=== PATIENT | female | born 1995 | race American Indian/Alaskan Native ===

== ENCOUNTER 2020-03-25 13:57 | Emergency (ER) | payer SELFPAY ==
--- NOTE | 2020-03-25 14:36 | Event Note ---
ED Screening Note ED Screening Note: many vague complaints depo rx none pmh fibro psh none works at [employer] nausea dec po chills dizzy then added cp and sob This initial assessment/diagnostic orders/clinical plan/treatment(s) is/are subject to change based on patients health status, clinical progression and re- assessment by fellow clinical providers in the ED. Further treatment and workup at subsequent clinical providers discretion. Patient/guardian urged not to elope from the ED as their condition may be serious if not clinically assessed and managed. Initial orders include: labs/ua
[2020-03-25 15:35] LABS: Bilirubin,Urine NEG (Negative); Blood,Urine NEG (Negative); Color,Urine Yellow (Yellow); Mucus,Urine FEW /HPF; Protein,Urine <15 mg/dL mg/dL (Negative); WBC,Urine < 1.0 /HPF (0.0-6.0)
[2020-03-25 15:40] LABS: HCG Qualitative,Urine Negative (Negative)
[2020-03-25 16:39] LABS: Blood Urea Nitrogen 7 mg/dL (7-17); Calcium 9.1 mg/dL (8.4-10.2); Hemolysis Index 15
[2020-03-25 16:45] LABS: Hematocrit 41.6 % (30.3-42.9); Mean Corpuscular HGB Conc 34 % (30-34); Mean Corpuscular Volume 89 fl (79-97); Platelet Count 243 K/mm3 (140-440); Red Blood Count 4.69 M/mm3 (3.65-5.03); Red Cell Distribution Width 12.7 % (13.2-15.2)
--- NOTE | 2020-03-25 16:45 | XRay Report ---
CHEST PA AND LATERAL VIEWS INDICATION: sob. COMPARISON: None FINDINGS: Support devices: None Heart: Normal Lungs/Pleura: No acute pulmonary or pleural findings. IMPRESSION: 1. No significant abnormality. Signer Name: Pieter Shaw MD Signed: 03/25/2020 4:40 PM Workstation Name: [id number]
[2020-03-25 16:46] LABS: BUN/Creatinine Ratio 12
== END 2020-03-25 15:30 | disposition left against medical advice (07) ==
LOC: ED 13:57
DX: R11.0 Nausea (principal); R51.9 Headache, unspecified; R06.02 Shortness of breath; Z53.21 Procedure and treatment not carried out due to patient leaving prior to being seen by health care provider
CPT/HCPCS: 36415; 71046; 80048; 81001; 81025; 85027

== ENCOUNTER 2021-02-03 16:52 | Emergency (ER) | payer MEDICAID ==
[2021-02-03 16:59] VITALS: BP 100/72
[2021-02-03] MEDS ORDERED: ONDANSETRON 4 MG/2 ML INJ IM ONE (17:27)
[2021-02-03] MEDS ORDERED: MORPHINE 4 MG/1 ML INJ IM ONE (17:27)
--- NOTE | 2021-02-03 17:35 | Emergency Department Report ---
HPI - General Chief Complaint: Abdominal Pain Time Seen by Provider: 02/03/21 17:18 - HPI HPI: MSE 1 The patient is a 25-year-old female present with a chief complaint of abdominal pain. Patient states for the past 2 to 3 weeks she has had intermittent sharp lower abdominal pain. Patient denies dysuria, hematuria or fever. When asked about vaginal discharge patient replies she does not know. Patient admits to nausea but denies vomiting or diarrhea. Patient currently gives her pain a score of 10/10 ED Past Medical Hx - Past Medical History Hx Asthma: Yes Additional medical history: fibromyalgia - Surgical History Past Surgical History?: No - Family History Family history: no significant - Social History Smoking Status: Never Smoker Substance Use Type: None (Denies illicit drug) - Medications Home Medications: Home Medications Medication Instructions Recorded Confirmed Last Taken Type Nitrofurantoin Mason/M-Cryst 100 mg PO Q12HR #14 capsule 02/03/21 Unknown Rx [Macrobid CAP] Pnv No.121/Iron/Folic Acid 1 each PO QDAY #60 tablet 02/03/21 Unknown Rx [ Multivitamin Tablet] ED Review of Systems ROS: Stated complaint: ABDOMINAL PAIN Other details as noted in HPI Constitutional: denies: fever Eyes: denies: eye pain ENT: denies: throat pain Respiratory: no symptoms reported Cardiovascular: denies: chest pain Endocrine: no symptoms reported Gastrointestinal: abdominal pain, nausea. denies: vomiting, diarrhea Genitourinary: discharge (?). denies: dysuria, hematuria Musculoskeletal: denies: back pain Neurological: denies: headache Physical Exam - Physical Exam Vital Signs: Vital Signs 02/03/21 16:58 Temperature 97.6 F Pulse Rate 68 Respiratory 16 Rate Blood Pressure 100/72 [Right] O2 Sat by Pulse 99 Oximetry Physical Exam: GENERAL: The patient is well-developed well-nourished female sitting in chair not appearing to be in acute distress. [] HEENT: Normocephalic. Atraumatic. Extraocular motions are intact. Patient has moist mucous membranes. NECK: Supple. Trachea midline CHEST/LUNGS: Clear to auscultation. There is no respiratory distress noted. HEART/CARDIOVASCULAR: Regular. There is no tachycardia. There is no gallop rub or murmur. ABDOMEN: Abdomen is soft, with mild discomfort to palpation in the right lower quadrant, suprapubic and left lower quadrant. Patient has normal bowel sounds. There is no abdominal distention. SKIN: There is no rash. There is no edema. There is no diaphoresis. NEURO: The patient is awake, alert, and oriented. The patient is cooperative. The patient has no focal neurologic deficits. The patient has normal speech MUSCULOSKELETAL: There is no evidence of acute injury. ED Course Vital Signs 02/03/21 16:58 Temperature 97.6 F Pulse Rate 68 Respiratory 16 Rate Blood Pressure 100/72 [Right] O2 Sat by Pulse 99 Oximetry ED Medical Decision Making - Lab Data Result diagrams: 02/03/21 17:48 02/03/21 17:48 Laboratory Tests 02/03/21 02/03/21 02/03/21 17:48 17:48 17:48 WBC 6.3 RBC 4.33 Hgb 12.5 Hct 38.8 MCV 90 MCH 29 MCHC 32 RDW 12.9 L Plt Count 247 Lymph % (Auto) 26.6 Mason % (Auto) 5.2 Eos % (Auto) 0.5 Baso % (Auto) 0.4 Lymph # (Auto) 1.7 Mason # (Auto) 0.3 Eos # (Auto) 0.0 Baso # (Auto) 0.0 Seg Neutrophils % 67.3 Seg Neutrophils # 4.2 Sodium 135 L Potassium 4.4 Chloride 102.8 Carbon Dioxide 19 L Anion Gap 18 BUN 6 L Creatinine 0.5 L Estimated GFR > 60 BUN/Creatinine Ratio 12 Glucose 88 Calcium 9.2 Total Bilirubin 0.40 AST 14 ALT 9 Alkaline Phosphatase 68 Total Protein 7.8 Albumin 4.1 Albumin/Globulin Ratio 1.1 Lipase 16 HCG, Qual Positive HCG, Quant Urine Color Urine Turbidity Urine pH Ur Specific [place] Urine Protein Urine Glucose (UA) Urine Ketones Urine Blood Urine Nitrite Urine Bilirubin Urine Urobilinogen Ur Leukocyte Esterase Urine WBC (Auto) Urine RBC (Auto) U Epithel Cells (Auto) Urine Bacteria (Auto) Urine Mucus Urine Sperm 02/03/21 02/03/21 17:48 Unknown WBC RBC Hgb Hct MCV MCH MCHC RDW Plt Count Lymph % (Auto) Mason % (Auto) Eos % (Auto) Baso % (Auto) Lymph # (Auto) Mason # (Auto) Eos # (Auto) Baso # (Auto) Seg Neutrophils % Seg Neutrophils # Sodium Potassium Chloride Carbon Dioxide Anion Gap BUN Creatinine Estimated GFR BUN/Creatinine Ratio Glucose Calcium Total Bilirubin AST ALT Alkaline Phosphatase Total Protein Albumin Albumin/Globulin Ratio Lipase HCG, Qual HCG, Quant 87591 H Urine Color Yellow Urine Turbidity Slightly-cloudy Urine pH 6.0 Ur Specific [place] 1.020 Urine Protein <15 mg/dl Urine Glucose (UA) Neg Urine Ketones 20 Urine Blood Neg Urine Nitrite Neg Urine Bilirubin Neg Urine Urobilinogen 4.0 Ur Leukocyte Esterase Tr Urine WBC (Auto) 8.0 H Urine RBC (Auto) < 1.0 U Epithel Cells (Auto) 4.0 Urine Bacteria (Auto) 2+ Urine Mucus 3+ Urine Sperm Few - Radiology Data Radiology results: report reviewed (Pelvic ultrasound), image reviewed (Pelvic ultrasound) [facility] [address] [place] [address] U ltrasound Report Signed Patient: DANGELO TAPIA MR# : [id number] : 1995 Acct:[id number] Age/Sex: 25 / F ADM Date: 02/03/21 Loc: ED Attending Dr: Ordering Physician: MILI BE MD Date of Service: 02/03/21 Procedure(s): US OB transvaginal Accession Number(s): [id number] cc: MILI BE MD ULTRASOUND OBSTETRIC INDICATION / CLINICAL INFORMATION: , lower abdominal pain. Clinical Gestational Age (GA) in weeks, days: 9, 1 TECHNIQUE: Transabdominal and Transvaginal. COMPARISON: None available. FINDINGS: GESTATIONAL SAC: Well-defined oval shape and intrauterine in location. YOLK SAC: No significant abnormality. EMBRYO/FETUS: No significant abnormality. - [place]- Rump Length = 0.7 cm = 6, 4 weeks, days - Heart Rate, beats per minute (if present) = ADNEXA: There is a complex cyst involving the right ovary which may represent involuting corpus luteal cyst. FREE FLUID: None. ADDITIONAL FINDINGS: None. IMPRESSION: 1. Single, living intrauterine with estimated sonographic age of 6, 4 weeks, days. heart tones are measured at 170 bpm. Signer Name: Dmitry Harrell DO Signed: 02/03/2021 8:28 PM Workstation Name: [id number] Transcribed By: NS Dictated By: DMITRY HARRELL DO Electronically Authenticated By: DMITRY HARRELL DO Signed Date/Time: 02/03/212027 DD/ 25 TD/TT: Print Cancel - Differential Diagnosis Cystitis, ovarian cyst, vaginitis, bacterial vaginosis Critical care attestation.: If time is entered above; I have spent that time in minutes in the direct care of this critically ill patient, excluding procedure time. ED Disposition Clinical Impression: , UTI (urinary tract infection) Disposition: HOME / SELF CARE / HOMELESS Is pt being admited?: No Does the pt Need Aspirin: No Condition: Stable Instructions: First Trimester of , [id number], Urinary Tract Infection, Adult, [id number], Abdominal Pain (ED) Additional Instructions: Return to the emergency department should you develop worsening symptoms, inability to tolerate food or liquids, high fever or any other concerns Prescriptions: Nitrofurantoin Mason/M-Cryst [Macrobid CAP] 100 mg PO Q12HR #14 capsule Pnv No.121/Iron/Folic Acid [ Multivitamin Tablet] 1 each PO QDAY #60 tablet Referrals: COBY STILL MD [Staff Physician] - [facility] (Dr. Still is an [employer]. Please follow-up with her for further evaluate)
[2021-02-03 17:58] LABS: Basophils % (Auto) 0.4 % (0.0-1.8); Eosinophils % (Auto) 0.5 % (0.0-4.3); Hematocrit 38.8 % (30.3-42.9); Hemoglobin 12.5 gm/dl (10.1-14.3); Lymphocytes # (Auto) 1.7 K/mm3 (1.2-5.4); Lymphocytes % (Auto) 26.6 % (13.4-35.0); Mean Corpuscular HGB Conc 32 % (30-34); Mean Corpuscular Volume 90 fl (79-97); Monocytes # (Auto) 0.3 K/mm3 (0.0-0.8); Monocytes % (Auto) 5.2 % (0.0-7.3); Platelet Count 247 K/mm3 (140-440); Red Blood Count 4.33 M/mm3 (3.65-5.03); Red Cell Distribution Width 12.9 % (13.2-15.2)
[2021-02-03 18:21] LABS: Alanine Aminotransferase 9 units/L (7-56); Albumin 4.1 g/dL (3.9-5); Blood Urea Nitrogen 6 mg/dL (7-17); Calcium 9.2 mg/dL (8.4-10.2); Hemolysis Index 34
[2021-02-03 18:22] LABS: BUN/Creatinine Ratio 12
[2021-02-03 18:49] LABS: Bacteria,Urine 2+ /HPF (Negative); Bilirubin,Urine NEG (Negative); Blood,Urine NEG (Negative); Color,Urine Yellow (Yellow); Mucus,Urine 3+ /HPF; Protein,Urine <15 mg/dL mg/dL (Negative); RBC,Urine < 1.0 /HPF (0.0-6.0); Sperm,Urine FEW /HPF (NP)
[2021-02-03] MEDS ORDERED: ACETAMINOPHEN 500 MG TAB PO ONE (19:06)
--- NOTE | 2021-02-03 20:32 | Ultrasound Report ---
ULTRASOUND OBSTETRIC INDICATION / CLINICAL INFORMATION: , lower abdominal pain. Clinical Gestational Age (GA) in weeks, days: 9, 1 TECHNIQUE: Transabdominal and Transvaginal. COMPARISON: None available. FINDINGS: GESTATIONAL SAC: Well-defined oval shape and intrauterine in location. YOLK SAC: No significant abnormality. EMBRYO/FETUS: No significant abnormality. - [place]-Rump Length = 0.7 cm = 6, 4 weeks, days - Heart Rate, beats per minute (if present) = ADNEXA: There is a complex cyst involving the right ovary which may represent involuting corpus lutea l cyst. FREE FLUID: None. ADDITIONAL FINDINGS: None. IMPRESSION: 1. Single, living intrauterine with estimated sonographic age of 6, 4 weeks, days. h eart tones are measured at 170 bpm. Signer Name: Dmitry Santiago DO Signed: 02/03/2021 8:28 PM Workstation Name: [id number]
--- NOTE | 2021-02-03 20:32 | Ultrasound Report ---
ULTRASOUND OBSTETRIC INDICATION / CLINICAL INFORMATION: , lower abdominal pain. Clinical Gestational Age (GA) in weeks, days: 9, 1 TECHNIQUE: Transabdominal and Transvaginal. COMPARISON: None available. FINDINGS: GESTATIONAL SAC: Well-defined oval shape and intrauterine in location. YOLK SAC: No significant abnormality. EMBRYO/FETUS: No significant abnormality. - [place]-Rump Length = 0.7 cm = 6, 4 weeks, days - Heart Rate, beats per minute (if present) = ADNEXA: There is a complex cyst involving the right ovary which may represent involuting corpus lutea l cyst. FREE FLUID: None. ADDITIONAL FINDINGS: None. IMPRESSION: 1. Single, living intrauterine with estimated sonographic age of 6, 4 weeks, days. h eart tones are measured at 170 bpm. Signer Name: Dmitry Santiago DO Signed: 02/03/2021 8:28 PM Workstation Name: [id number]
== END 2021-02-03 21:02 | disposition home or self-care (01) ==
LOC: ED 16:52
DX: O23.41 Unspecified infection of urinary tract in pregnancy, first trimester (principal); N39.0 Urinary tract infection, site not specified; Z3A.01 Less than 8 weeks gestation of pregnancy; J45.909 Unspecified asthma, uncomplicated
CPT/HCPCS: 36415; 76801; 76817; 80053; 81001; 83690; 84702; 84703; 85025; 96372; 99284; J2270; J2405